=== PATIENT | male | born 1980 | race Caucasian/White ===

== ENCOUNTER 2020-08-10 11:06 | Inpatient (IN) | payer OTHER ==
[~2020-08-10] VITALS: Ht 190.5 cm; Wt 117.9 kg
[2020-08-10 11:44] VITALS: BP 122/80
[2020-08-10 12:06] LABS: ABSOLUTE NEUTROPHILS 4.5 thou/uL (1.4-8.2); BASOPHILS 0.5 % (0.0-2.0); EOSINOPHILS 1.7 % (0.0-3.0); HEMATOCRIT 46.9 % (42.0-52.0); HEMOGLOBIN 16.2 gm/dL (14.0-18.0); LYMPHOCYTES 26.2 % (24.0-44.0); MCH 30.6 pg (26.0-34.0); MCHC 34.5 g/dL (28.0-37.0); MCV 88.8 fL (80.0-100.0); MONOCYTES 13.6 % (1.0-8.0); PLATELET COUNT 299 thou/uL (150-400); RBC 5.29 mil/uL (4.50-6.00); RDW 16.2 % (10.5-14.5); WBC 7.8 thou/uL (4.0-11.0)
[2020-08-10 12:09] LABS: CALCIUM 8.3 mg/dL (8.5-10.1); CREATININE 1.1 mg/dL (0.7-1.3)
[2020-08-10 12:13] LABS: POTASSIUM 4.8 mmol/L (3.5-5.1)
[2020-08-10 12:28] LABS: ALBUMIN 2.6 g/dL (3.4-5.0); TOTAL BILIRUBIN 13.7 mg/dL (0.2-1.0); TOTAL PROTEIN 7.4 g/dL (6.4-8.2)
[2020-08-10 13:06] LABS: URINE BILIRUBIN 3+ (Negative); URINE BLOOD TRACE (Negative); URINE CLARITY CLOUDY; URINE COLOR BROWN; URINE GLUCOSE-RANDOM* TRACE (Negative); URINE KETONES TRACE (Negative); URINE LEUKOCYTES-REFLEX NEGATIVE (Negative); URINE NITRITE-REFLEX POSITIVE (Negative); URINE PROTEIN (DIPSTICK) 1+ (Negative); URINE SPECIFIC GRAVITY 1.025 (1.005-1.035)
[2020-08-10 13:07] LABS: ICTOTEST (BILI CONFIRMATORY) Positive (Negative)
[2020-08-10 13:17] LABS: WBC CASTS >10 Many /LPF (None Seen)
[2020-08-10 13:18] LABS: AMORPHOUS URATES Few /LPF (None Seen); HYALINE CASTS 0-3 Few /LPF (None Seen); SQUAMOUS None Seen /LPF (0-3); URINE RBC None Seen /HPF (NONE SEEN); URINE WBC-REFLEX 0-5 Rare /HPF (0-5)
[2020-08-10 15:16] VITALS: BP 112/77
[2020-08-10 16:27] LABS: AMP/METHAMP POSITIVE (Negative); BARBITURATES Negative (Negative); BENZODIAZEPINES Negative (Negative); COCAINE Negative (Negative); METHADONE Negative (Negative); OPIATES Negative (Negative); PCP Negative (Negative)
[2020-08-10 16:44] VITALS: BP 108/64
[2020-08-10 17:00] VITALS: BP 117/83
[2020-08-10 17:59] LABS: INR 1.03; PROTIME 11.2 Seconds (10.5-12.1)
[2020-08-10 18:06] LABS: % SATURATION 48 % (20-39); IRON 97 ug/dL (65-175); TIBC 204 ug/dL (250-450)
--- NOTE | 2020-08-10 18:24 | NUR ---
ASSUMED PT CARE AT 1700 FROM ED. PT IS ALERT & ORIENTED X4. PT HAS IV SITE ON L AC RUNNING NS @100ML/HR. PT DENIES PAIN, NAUSEA AND VOMITING. PT HAS JAUNDICE EYES, DARK COLORED URINE, AND C/O OF ACID REFLUX SENSATION. PT TOLERATED DIET WELL. PT IS UP AD DAVID. FINISHED ADMISSION. PT ON THE BED, BED ON THE LOWEST POSITIOM, SIDE RAILS UP, CALL LIGHT WITHIN REACH. WILL CONTINUE TO MONITOR PT. FOLLOW POC.
[2020-08-10 20:49] VITALS: BP 95/53
[2020-08-10 23:06] LABS: IgG 1633 mg/dL (603-1613)
--- NOTE | 2020-08-11 05:06 | NUR ---
PATIENT AOX4 MAKES NEEDS MAKES NEEDS KNOWN.PATIENT DENIED PAIN OR DISCOMFORT. PATIENT IS UP AT DAVID. PATIENT IN BED ASLEEP AT THIS TIME BREATHING REGULAR AND UNLABOURED.
[2020-08-11 05:57] LABS: CALCIUM 7.4 mg/dL (8.5-10.1); CREATININE 1.1 mg/dL (0.7-1.3); POTASSIUM 4.6 mmol/L (3.5-5.1); TOTAL PROTEIN 6.3 g/dL (6.4-8.2)
[2020-08-11 05:58] LABS: TOTAL BILIRUBIN 9.6 mg/dL (0.2-1.0)
[2020-08-11 07:08] LABS: HAV IgM AB (ANTI-HAV IgM) Positive (Negative); HEPATITIS B SURFACE AG Negative (Negative); HEPATITIS C VIRUS AB <0.1 (0.0-0.9)
[2020-08-11 07:10] LABS: PROTIME 10.9 Seconds (10.5-12.1)
[2020-08-11 07:21] VITALS: BP 103/67
--- NOTE | 2020-08-11 14:21 | NUR ---
Pt admitted related to elevated liver enzymer, uti, jaundice. Cm reviewed chart and spoke with care team. Cm met with pt at bedside this day. PT appeared to be a&o x4. Cm role introduced. Pt indicated he lives in a slpit level house with his mother with 12 steps inside and like 10 steps to bedroom. 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 Pt indicated no dme or hh hx. 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 Pt indicated he plans to be able to pay for any new medications upon dc. Pt inidcated no PCP. Cm to provide [facility] packet. GI consilted pt had MRCP there had been talk of ERCP/EUS. Cm following regarding dc planning.
[2020-08-11 15:08] LABS: CERULOPLASMIN 25.5 mg/dL (16.0-31.0)
--- NOTE | 2020-08-11 15:10 | NUR ---
ASSUMED PT CARE THIS AM. PT A&OX4, ABLE TO MAKE NEEDS KNOWN. IV PATENT, FLUIDS INFUSING. PATIENT IS ON ROOM AIR. AMBULATES INDEPENDENTLY TO THE BATHROOM. PATIENT'S EYES APPEAR SLIGHTLY JAUNDICED. CALL LIGHT WITHIN REACH.
[2020-08-11 15:31] VITALS: BP 124/79
[2020-08-11 21:49] VITALS: BP 110/78
--- NOTE | 2020-08-12 03:14 | NUR ---
PATIENT AOX4 MAKES NEEDS KNOWN. PATIENT IS UP AT DAVID. PATIENT DENIED PAIN OR DISCOMFORT. EMPERATRIZ NOTED ON SKIN AND EYES. PATIENT ENCOURAGED SNACKS AND FLUIDS. PATIENT IN BED ASLEEP AT THIS TIME BREATHING REGULAR AND UNLABOURED.
--- NOTE | 2020-08-12 08:41 | HC ---
[facility] [place] [address] CONSULTATION Name: JOSE CLAUDIO Room #: 457-P [facility] IN M.R.#: [id number] Admission: 08/10/20 Attend Phys: Joseph Dodd MD Discharge: Date of : 78 Report #: [id number] THIS REPORT FOR: cc: FAM - No family physician/PCP FAM - No family physician/PCP Maninder Medina MD ~ DOC #: [id number] Maninder Medina MD DATE OF SERVICE: 08/11/2020 REQUESTING PHYSICIAN: Dr. Dodd REASON FOR CONSULTATION: Retroperitoneal adenopathy. HISTORY OF PRESENT ILLNESS: The patient is a very pleasant 40-year-old male admitted to the hospital for yellow skin, dark urine and white stools for several days. He has not had any unusual chemical exposure. He is not aware of any hepatitis exposures. Does drink some alcohol. Does occasionally do amphetamines and marijuana. Does smoke. FAMILY HISTORY: No one newly diagnosed with any cancers. He has not had any sick pets. He has not had any travel, any bug bites that he is aware of. 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 He has been at the current factory, which I think is he [employer] for about 5 years. PHYSICAL EXAMINATION: GENERAL: The patient appears his stated age. He is obviously jaundiced. VITAL SIGNS: Height is 6 feet 3, 190.5 cm; weight 260 pounds or 117.9 kilograms. Blood pressure is 95/53, respirations 18, O2 sat 96%, pulse 77, temperature 98.4. LUNGS: Clear with symmetric, unlabored respirations. No rhonchi or rales. No enlarged lymph nodes. ABDOMEN: Quite obese. No organomegaly. EXTREMITIES: Without clubbing, cyanosis or edema. DIAGNOSTIC DATA: His CAT scan is notable for showing retroperitoneal lymph node. There was 1 near the celiac axis measuring 3.8 x 1.9 cm. An additional celiac lymph node 2 x 1.4. There is also a third enlarged lymph node measuring 3.2 x 2.2. There are also some others. LABORATORY DATA: Lab work is mostly notable for elevation of total bilirubin and direct bilirubin. Hemoglobin was 16 2, white count 7.8 with normal [address] [address] CONSULTATION Name: JOSE CLAUDIO Room #: [facility] ADM IN M.R.#: [id number] Admission: 08/10/20 Attend Phys: Joseph Dodd MD Discharge: Date of : 78 Report #: [id number] differential, platelets 299. Also, transaminases are elevated as an example ALT 1331, AST was in the high several 100s. Note, the patient has hepatitis A positive IgM. GI yet to see the patient regarding this. MEDICATIONS: Described by the patient at this time currently includes Zofran, IV fluids and ceftriaxone was given one time. ASSESSMENT AND PLAN: 1. Retroperitoneal adenopathy. We will check with GI to see how likely this is from hepatitis A. We will go ahead and plan a CT chest to see if there is adenopathy in the chest. Depending on what we find, we might consider repeat CAT scan in 2-3 months or at least we can wait until some of his hepatitis symptoms resolve. This does not appear to be obstructed. 2. Hepatitis A. My understanding is this usually resolves on its own with supportive measures. We will defer to GI. 3. Methamphetamine use. Would suggest cessation. 4. Marijuana use, use cautiously. We will follow with you. MD KARTHIK Ocasio/NICOLLE/MARY <ELECTRONICALLY SIGNED> By: Maninder Medina MD 08/12/20 0841 [id number] 10 Maninder Medina MD /nt
[2020-08-12 12:24] LABS: DIRECT BILIRUBIN 4.8 mg/dL (<0.1-0.2); TOTAL PROTEIN 6.4 g/dL (6.4-8.2)
--- NOTE | 2020-08-12 12:33 | NUR ---
CARE TEAM INDICATED THAT PT IS MEDICALLY STABLE TO DC HOME THIS DAY. PT IS TO DC HOME TO SELF CARE. NO OTHER CM INTERVENTION INDICATED. CASE CLOSED.
[2020-08-12 13:54] VITALS: BP 110/78
--- NOTE | 2020-08-12 14:05 | NUR ---
ASSUMED CARE OF PATIENT AT SHIFT CHANGE. ASSESSMENT CHARTED. VITAL SIGNS REMAIN STABLE. PATIENT IS A&OX4 AND MAKES NEEDS KNOWN. PATIENT GETS UP INDEPENDENDENTLY WITH A STEADY GAIT. PATIENT REMAINS JAUNDICED ALTHOUGH SCLERA IS CLEARER & LESS YELLOW. PATIENT DENIES PAIN AND NAUSEA; VOICING WANTING BREAKFAST AND SNACKS & TOLERATING WELL. PROVIDERS SPOKE WITH PATIENT & MOTHER THIS DAY AND INDICATED PATIENT IS MEDICALLY STABLE TO DISCHARGE HOME WITH SELF CARE THIS DAY. LIST OF PROVIDERS GIVEN TO PATIENT PATIENT DOES NOT HAVE A PCP. IV DISCONTINUED W NO ISSUES. PATIENT DENIED FURTHER NEEDS. WILL CONTINUE TO MONITOR UNTIL DISCHARGE.
[2020-08-13 14:08] LABS: ANA INTERPRETATION Negative (Negative)
== END 2020-08-12 14:25 | disposition home or self-care (01) | DRG 442 ==
LOC: ER 11:06 → 4W 16:45 → ER 16:45 → 4W 17:16
PROVIDERS: Emergency Medicine; Nurse Practitioner; ADMIT Hospitalist; ATTEND Hospitalist
DX: B15.9 Hepatitis A without hepatic coma (principal); K92.2 Gastrointestinal hemorrhage, unspecified; E46 Unspecified protein-calorie malnutrition; R74.01 Elevation of levels of liver transaminase levels; F19.10 Other psychoactive substance abuse, uncomplicated; R59.9 Enlarged lymph nodes, unspecified; F12.90 Cannabis use, unspecified, uncomplicated; Z68.32 Body mass index [BMI] 32.0-32.9, adult; Z79.899 Other long term (current) drug therapy
CPT/HCPCS: 10045; 10047